=== PATIENT | female | born 1975 | race Caucasian/White ===

== ENCOUNTER → 2016-07-17 | Outpatient (REF) | payer OTHER ==
[~2016-07-17] MED LIST: IBUP600T26 PO; NORCOTAB PO; No Medications
[2016-07-17 18:53] LABS: MEAN CORPUSCULAR HEMOGLOBIN 29.5 pg (27.0-33.0); MEAN CORPUSCULAR HGB CONC 32.5 g/dl (32.0-36.5); MEAN CORPUSCULAR VOLUME 90.9 fl (80.0-96.0); RED CELL DISTRIBUTION WIDTH 13.2 % (11.5-14.5); WHITE BLOOD COUNT 7.5 K/mm3 (4.0-10.0)
[2016-07-17 18:57] LABS: ALBUMIN 4.1 GM/DL (3.2-5.2); ALBUMIN/GLOBULIN RATIO 1.24 (1.00-1.93); ALKALINE PHOSPHATASE 94 U/L (45-117); ALT/SGPT 26 U/L (12-78); ANION GAP 8 MEQ/L (8-16); AST/SGOT 15 U/L (15-37); BILIRUBIN,TOTAL 0.7 MG/DL (0.2-1.0); BLOOD UREA NITROGEN 10 MG/DL (7-18); CARBON DIOXIDE LEVEL 28 MEQ/L (21-32); CHLORIDE LEVEL 106 MEQ/L (98-107); CREATININE FOR GFR 0.76 MG/DL (0.55-1.02); GLOMERULAR FILTRATION RATE > 60.0 (>58); GLUCOSE, FASTING 86 MG/DL (70-105); POTASSIUM SERUM 4.9 MEQ/L (3.5-5.1); SODIUM LEVEL 142 MEQ/L (136-145); TOTAL PROTEIN 7.4 GM/DL (6.4-8.2)
== END ==
LOC: M SFHCADAM 09:46
PROVIDERS: ATTEND Family Medicine
DX: E04.9 Nontoxic goiter, unspecified (principal); K21.9 Gastro-esophageal reflux disease without esophagitis

== ENCOUNTER → 2016-12-03 | Outpatient (REF) | payer OTHER | LOC: M LAB REF 12:06 | PROVIDERS: ATTEND Physician Assistant | DX: J02.9 Acute pharyngitis, unspecified (principal) ==

== ENCOUNTER → 2017-11-11 | Outpatient (CLI) | payer OTHER ==
[2017-11-11 20:28] LABS: ALBUMIN 3.5 GM/DL (3.2-5.2); ALKALINE PHOSPHATASE 107 U/L (45-117); ALT/SGPT 28 U/L (12-78); ANION GAP 9 MEQ/L (8-16); AST/SGOT 15 U/L (7-37); BILIRUBIN,TOTAL 0.5 MG/DL (0.2-1.0); BLOOD UREA NITROGEN 6 MG/DL (7-18); CALCIUM LEVEL 8.7 MG/DL (8.5-10.1); CARBON DIOXIDE LEVEL 26 MEQ/L (21-32); CHLORIDE LEVEL 106 MEQ/L (98-107); CREATININE FOR GFR 0.82 MG/DL (0.55-1.30); GLOMERULAR FILTRATION RATE > 60.0 (>58); GLUCOSE, FASTING 83 MG/DL (70-100); POTASSIUM SERUM 4.5 MEQ/L (3.5-5.1); SODIUM LEVEL 141 MEQ/L (136-145)
[2017-11-11 20:36] LABS: BASO # 0.1 10^3/uL (0.0-0.2); BASO % 0.6 % (0.0-1.0); EOS # 0.3 10^3/uL (0.0-0.50); EOS % 3.1 % (0.0-3.0); HEMATOCRIT 38.6 % (36.0-47.0); HEMOGLOBIN 12.2 g/dl (12.0-15.5); IMMATURE GRANULOCYTE % 0.4 % (0-3.0); LYMPH # 1.7 10^3/uL (1.5-4.5); LYMPH % 16.5 % (24.0-44.0); MEAN CORPUSCULAR HEMOGLOBIN 27.2 pg (27.0-33.0); MEAN CORPUSCULAR HGB CONC 31.6 g/dl (32.0-36.5); NEUTROPHILS % 69.4 % (36.0-66.0); PLATELET COUNT, AUTOMATED 304 10^3/uL (150-450); RED BLOOD COUNT 4.49 10^6/uL (4.00-5.40); WHITE BLOOD COUNT 10.1 10^3/uL (4.0-10.0)
== END ==
LOC: M ADAMS 17:37
DX: R10.30 Lower abdominal pain, unspecified (principal)

== ENCOUNTER → 2017-11-16 | Outpatient (REF) | payer OTHER | LOC: M SFHCPLAZ 11-18 12:08 | DX: R19.7 Diarrhea, unspecified (principal) ==

== ENCOUNTER → 2019-06-22 | Outpatient (CLI) | payer OTHER ==
[~2019-06-22] MED LIST changes: +HYDR-3715 PO; +IBUP-1022 PO; -IBUP600T26 PO; -NORCOTAB PO
--- NOTE | 2019-06-22 07:30 | REP ---
Clinical: Goiter. Technique: Real time valerio scale and color evaluation using linear high frequency transducer. Comparison: None. Findings: The thyroid gland is generally heterogeneous. Isthmus measures 4 mm in width. Right lobe measures 5.0 x 1.9 x 1.4 cm and includes 5.8 mm upper pole hypoechoic structure with subtle increased through transmission suggesting a complex possibly colloid cyst and 18 x 14 x 17 mm heterogeneous lower pole nodular area. Left lobe measures 4.4 x 2.1 x 2.0 cm and includes 23 x 15 x 21 mm heterogeneous mid/lower pole nodular area. Impression: Bilateral nodular areas to the thyroid gland as described above. Electronically Signed by Vidal Turner MD 06/22/2019 07:21 A
== END ==
LOC: M RAD 06:02
PROVIDERS: ATTEND Physician Assistant Medical
DX: E04.9 Nontoxic goiter, unspecified (principal)

== ENCOUNTER → 2019-08-13 | Outpatient (REF) | payer OTHER | LOC: M LABDRWAD 15:21 → M LABDRAW1 15:21 | PROVIDERS: ATTEND Internal Medicine Gastroenterology | DX: K58.0 Irritable bowel syndrome with diarrhea (principal) ==

== ENCOUNTER → 2019-09-16 | Outpatient (REF) | payer OTHER | LOC: M LAB REF 17:24 | PROVIDERS: ATTEND Dermatology | DX: D22.5 Melanocytic nevi of trunk (principal); D22.62 Melanocytic nevi of left upper limb, including shoulder; D22.71 Melanocytic nevi of right lower limb, including hip ==

== ENCOUNTER → 2020-02-26 | Outpatient (CLI) | payer OTHER ==
[~2020-02-26] MED LIST changes: +DICY20TA11; +DULO1CAP6; +ESTR625TA; +OMEP1CAP73
--- NOTE | 2020-03-10 08:59 | REP ---
LEFT KNEE SERIES: 5-VIEWS HISTORY: Pain in the left knee. FINDINGS: Five views of the left knee show normal bones, joints, and soft tissues. No evidence of arthropathy is seen. No evidence of joint effusion. IMPRESSION: Negative left knee radiographs. MTDD
== END ==
LOC: M ADAMS 16:22
PROVIDERS: ATTEND Physician Assistant Medical
DX: M25.562 Pain in left knee (principal)

== ENCOUNTER → 2020-04-07 | Outpatient (CLI) | payer OTHER | LOC: M LABSMTC 10:43 | PROVIDERS: ATTEND Anesthesiology | DX: Z01.812 Encounter for preprocedural laboratory examination (principal); Z20.828 Contact with and (suspected) exposure to other viral communicable diseases ==

== ENCOUNTER 2020-04-12 11:23 | Day surgery (SDC) | payer OTHER ==
[~2020-04-12] VITALS: Ht 165.1 cm; Wt 109.5 kg
[~2020-04-12 11:23] MED LIST changes: +LIDOCAINE 2% 100MG/5ML SDV (FOR ANES.) As Ordered ONE; +NS 1,000 ML IV ONE; +propofoL 200 MG/20 ML VIAL As Ordered ONE
--- NOTE | 2020-04-12 13:28 | ROOR ---
Patient Name: Kyleigh Burroughs Procedure Date: 04/12/2020 1:11 PM Date of : 1975 Age: 45 Room: [facility] Gender: Female Note Status: Finalized Procedure: Upper GI endoscopy Indications: Heartburn Providers: Lamont ADAMS MD Referring MD: HILARIO Mcginnis Requesting Provider: Medicines: Monitored Anesthesia Care Complications: No immediate complications. Procedure: Pre-Anesthesia Assessment: - The heart rate, respiratory rate, oxygen saturations, blood pressure, adequacy of pulmonary ventilation, and response to care were monitored throughout the procedure. The Endoscope was introduced through the mouth, and advanced to the second part of duodenum. The upper GI endoscopy was accomplished without difficulty. The patient tolerated the procedure well. Findings: The examined esophagus was normal. Scattered minimal inflammation characterized by erythema was found in the gastric antrum. Biopsies were taken with a cold forceps for histology. The exam of the stomach was otherwise normal. The examined duodenum was normal. Impression: - Normal esophagus. - Mild gastritis (antrum). Biopsied. - Normal examined duodenum. Recommendation: - Continue present medications. - Observe patient's clinical course. - Telephone endoscopist for pathology results in 2 weeks. Lamont Adams MD Lamont ADAMS MD 04/12/2020 1:27:05 PM Electronically signed by Lamont ADAMS MD Number of Addenda: 0 Note Initiated On: 04/12/2020 1:11 PM Estimated Blood Loss: Estimated blood loss: none.
--- NOTE | 2020-04-12 13:43 | ROOR ---
Patient Name: Kyleigh Burroughs Procedure Date: 04/12/2020 1:12 PM Date of : 1975 Age: 45 Room: [facility] Gender: Female Note Status: Finalized Procedure: Colonoscopy Indications: Clinically significant diarrhea of unexplained origin, Suspected irritable bowel syndrome Providers: Lamont ADAMS MD Referring MD: HILARIO Mcginnis Requesting Provider: Medicines: Monitored Anesthesia Care Complications: No immediate complications. Procedure: Pre-Anesthesia Assessment: - The heart rate, respiratory rate, oxygen saturations, blood pressure, adequacy of pulmonary ventilation, and response to care were monitored throughout the procedure. The Colonoscope was introduced through the anus and advanced to 10 cm into the ileum. The colonoscopy was performed without difficulty. The patient tolerated the procedure well. The quality of the bowel preparation was good. Findings: The perianal and digital rectal examinations were normal. The ileocecal valve was somewhat deformed, but widely patent. The colon (entire examined portion) appeared normal. The terminal ileum appeared normal. Biopsies for histology were taken with a cold forceps for evaluation of microscopic colitis. Impression: - Small internal hemorrhoids. - The entire examined colon is normal. - The examined portion of the ileum was normal. - Biopsies were taken with a cold forceps for evaluation of microscopic colitis. Recommendation: - Telephone endoscopist for pathology results in 2 weeks. - Continue present medications. Lamont Adams MD Lamont ADAMS MD 04/12/2020 1:43:13 PM Electronically signed by Lamont ADAMS MD Number of Addenda: 0 Note Initiated On: 04/12/2020 1:12 PM Estimated Blood Loss: Estimated blood loss: none.
[2020-04-12 14:00] VITALS: BP 140/84
== END 2020-04-12 14:21 | disposition home or self-care (01) ==
LOC: M OPP 11:23
PROVIDERS: ATTEND Internal Medicine Gastroenterology
DX: K59.39 Other megacolon (principal); R19.7 Diarrhea, unspecified; K64.8 Other hemorrhoids; K29.70 Gastritis, unspecified, without bleeding; R12 Heartburn; Z79.891 Long term (current) use of opiate analgesic; Z79.899 Other long term (current) drug therapy

== ENCOUNTER → 2020-06-15 | Outpatient (CLI) | payer OTHER ==
[~2020-06-15] MED LIST changes: -LIDOCAINE 2% 100MG/5ML SDV (FOR ANES.) As Ordered ONE; -NS 1,000 ML IV ONE; -propofoL 200 MG/20 ML VIAL As Ordered ONE
--- NOTE | 2020-06-16 16:09 | SLEEPHOME ---
DATE: 06/15/2020 ORDERED BY: Lisa Robertson Diagnostic home sleep testing was performed due to concern for the obstructive sleep apnea syndrome. For testing, a nocturnal T3 respiratory monitoring device was used. Continuous record was made of pulse, oxygen saturation, air flow, chest and abdominal strain, and body position. There was 9 hours and 59 minutes of data reviewed. There was only 3 hours and 56 minutes marked as time in bed, but during the marked interval marked time in bed, there were 28 respiratory events identified of 10 seconds in duration or greater for a respiratory event index of 7.1. The events were primarily obstructive. Baseline pulse rate 89. Pulse rate ranged 74-110, baseline saturation 94%. Saturations fell to 87%, and testing was performed in both the supine and non-supine positions. IMPRESSION: Abnormal diagnostic home sleep test with repetitive respiratory events and oxygen desaturations to 87% with a respiratory event index of 7.1 is consistent with the obstructive sleep apnea syndrome. RECOMMENDATION: The patient should be encouraged to undergo formal sleep evaluation.
== END ==
LOC: M SLEEP HO 10:53
PROVIDERS: ATTEND Nurse Practitioner Family
DX: R40.0 Somnolence (principal)

== ENCOUNTER → 2020-06-29 | Outpatient (CLI) | payer OTHER ==
--- NOTE | 2020-06-29 11:24 | REP ---
INDICATION: VARICOSE VEINS COMPARISON: None. TECHNIQUE: Morrow scale and color Doppler evaluation of the bilateral lower extremities using linear high frequency transducer followed by reflux evaluation. FINDINGS: Ultrasound examination of the right and left lower extremity deep venous structures from the common femoral vein to the popliteal vein demonstrates normal compressibility flow and wave patterns in response to respiration and augmentation. There is no evidence for deep venous thrombosis. Reflux evaluation demonstrates very minimal reflux through the right and left proximal greater saphenous veins. Proximal right greater saphenous vein measures 9 mm diameter with reflux duration 4.2 seconds. Proximal left greater saphenous vein measures 7 mm diameter with reflux duration 3.2 seconds. Mild reflux is also identified within the bilateral common femoral veins. IMPRESSION: No evidence for deep venous thrombosis. Very minimal reflux disease as noted above. <Electronically signed by Vidal Turner > 06/29/20 [id number]
== END ==
LOC: M RAD 08:56
PROVIDERS: ATTEND Surgery Vascular Surgery
DX: I87.2 Venous insufficiency (chronic) (peripheral) (principal); I83.813 Varicose veins of bilateral lower extremities with pain

== ENCOUNTER → 2020-08-01 | Outpatient (REF) | payer OTHER | LOC: M LAB REF 12:27 | PROVIDERS: ATTEND Internal Medicine Gastroenterology | DX: K58.0 Irritable bowel syndrome with diarrhea (principal) ==

== ENCOUNTER → 2020-08-08 | Outpatient (REF) | payer OTHER | LOC: M LABDRWAD 16:06 | PROVIDERS: ATTEND Internal Medicine Gastroenterology | DX: K52.89 Other specified noninfective gastroenteritis and colitis (principal) ==

== ENCOUNTER → 2021-02-24 | Outpatient (REF) | payer OTHER ==
[~2021-02-24] MED LIST changes: -DICY20TA11; +DICY20TA20
[2021-02-24 14:19] LABS: ALBUMIN 3.5 GM/DL (3.2-5.2); ALT/SGPT 17 U/L (12-78); BILIRUBIN,TOTAL 0.4 MG/DL (0.2-1.0); BLOOD UREA NITROGEN 14 MG/DL (7-18); CARBON DIOXIDE LEVEL 27 MEQ/L (21-32); CHLORIDE LEVEL 108 MEQ/L (98-107); CHOLESTEROL LEVEL 212 MG/DL (<200); CHOLESTEROL RISK RATIO 3.419 (<5); CREATININE FOR GFR 0.69 MG/DL (0.55-1.30); FREE T4 0.78 NG/DL (0.76-1.46); GLOMERULAR FILTRATION RATE > 60.0 (>58); GLUCOSE, FASTING 81 MG/DL (70-100); HDL CHOLESTEROL 62 MG/DL (>40); LDL CHOLESTEROL 122 MG/DL (<100); NON-HDL-C 150 MG/DL; POTASSIUM SERUM 4.7 MEQ/L (3.5-5.1); SODIUM LEVEL 139 MEQ/L (136-145); TOTAL PROTEIN 7.2 GM/DL (6.4-8.2); TRIGLYCERIDES LEVEL 139 MG/DL (<150)
== END ==
LOC: M SFHCADAM 12:17
PROVIDERS: ATTEND Physician Assistant Medical
DX: G47.33 Obstructive sleep apnea (adult) (pediatric) (principal); K21.9 Gastro-esophageal reflux disease without esophagitis; E66.01 Morbid (severe) obesity due to excess calories; E04.1 Nontoxic single thyroid nodule

== ENCOUNTER → 2021-03-03 | Outpatient (CLI) | payer OTHER ==
[~2021-03-03] MED LIST changes: +DICY20TA11; -DICY20TA20
--- NOTE | 2021-03-03 17:08 | REP ---
INDICATION: NODULE, GOITER. COMPARISON: 06/22/2019. TECHNIQUE: Real-time sonographic evaluation of thyroid performed. FINDINGS: Right lobe of the thyroid is enlarged 7.4 x 1.7 x 1.4 cm. Left lobe is normal in size 4.7 x 1.9 x 1.7 cm. Echotexture is diffusely heterogeneous. A hypoechoic nodule in the right upper pole has not changed measuring 6 x 5 x 5 mm. An oval isoechoic nodule in the right lower pole measures 3.2 x 1.6 x 2.3 cm. This appears to have mildly increased in size. A heterogeneous hypoechoic nodule in the left lower pole measures 3.4 x 1.8 x 2.2 cm. It contains a small cystic area. This appears to have mildly increased in size. IMPRESSION: There is a solid nodule in the lower pole of each lobe of the thyroid. Both appear to have mildly increased in size. Recommend ultrasound-guided FNA of both nodules. <Electronically signed by George Morrow > 03/03/21 [id number]
== END ==
LOC: M RAD 16:03
PROVIDERS: ATTEND Physician Assistant Medical
DX: E04.1 Nontoxic single thyroid nodule (principal)

== ENCOUNTER → 2021-03-27 | Outpatient (CLI) | payer OTHER ==
--- NOTE | 2021-03-28 17:44 | ECHO ---
ECHOCARDIOGRAM DATE OF PROCEDURE: 03/27/2021 Age: 45 years Gender: Female Height: 64 inches Weight: 246 pounds Body Surface Area: 2.35 m2 Outpatient REFERRING PHYSICIAN: Gale Montez PA-C INDICATION: Abnormal EKG. MEASUREMENTS: 2D Measurements: RV 3.5 cm LV 5.2 cm Septum 1.1 cm Posterior wall 1.1 cm Aortic Root 3.2 cm LA 4.2 cm LVEF 65% Doppler Measurements: AV 1.25 m/s LVOT 0.86 m/s MV-E 66, A 60, E/A ratio 1.1 Early mitral deceleration time 180 ms E prime medial 6.3, A prime medial 12, E prime lateral 8.3 Average E/E prime ratio 9/PCWP - 13 mmHg PV 0.9 m/s Pulmonary artery acceleration time 102 ms PASP 36 mmHg IVC 1.8 cm COMMENTS: Normal sinus rhythm without intraventricular conduction disturbance. Somewhat technically challenging study in light of the patient's body habitus, but diagnostically useful information was still obtained. M-Mode and Two Dimensional Echocardiography was performed with pulse, continuous wave, color flow, and tissue Doppler studies. Normal left ventricular size, wall thickness, and wall motion. Slightly dilated left atrium with currently normal Doppler assessment of LV diastolic function and estimated mean left atrial pressure. Normal right heart chamber sizes and motion with single Doppler sign of mild pulmonary hypertension. Normal inferior vena cava (IVC) size and collapse against an elevated central venous pressure. Normal aortic dimensions. Normal-appearing and functioning valvular structures. No apparent intracardiac mass or pericardial effusion. MTDD
== END ==
LOC: M CARPUL 08:46
PROVIDERS: ATTEND Physician Assistant Medical
DX: R94.31 Abnormal electrocardiogram [ECG] [EKG] (principal)

== ENCOUNTER → 2021-04-11 | Outpatient (REF) | payer OTHER | LOC: M LAB REF 19:04 | PROVIDERS: ATTEND Internal Medicine Endocrinology, Diabetes & Metabolism | DX: E04.2 Nontoxic multinodular goiter (principal) ==

== ENCOUNTER → 2021-06-14 | Outpatient (CLI) | payer OTHER ==
--- NOTE | 2021-06-14 10:14 | REPMRS ---
Patient History The patient states she had a clinical breast exam on 10-08-21. Family history of breast cancer at age 70 in mother, colorectal cancer at age 75 in father. Benign core biopsy of the left breast, September 17, 2006. Took hormonal contraceptives for 10 years. Tomosynthesis is performed. Volpara breast density is b. [facility] lifetime risk of breast cancer 18.5%. Patient states no breast complaints today. Patient has signed MRS History Sheet. Digital Woman Screen Mammo: June 14, 2021 - Exam #: [id number] Bilateral CC and MLO view(s) were taken. 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 April 28, 2015, digital woman screen mammo performed at [facility]. FINDINGS: There are scattered fibroglandular densities. There is a fairly symmetric fibroglandular pattern in both breasts. There has been no interval development of masses, areas of architectural distortion or clusters of microcalcifications typical of malignancy. A smoothly marginated nodule medially in the right breast is stable. A smoothly marginated nodule of the inferior left breast is stable. No significant changes when compared with prior studies. Assessment: BI-RADS/ACR category 2 mammogram. Benign Findings. Recommendation Routine screening mammogram of both breasts in 1 year (for women over age 40). This mammogram was interpreted with the aid of an FDA-approved computer-aided dectection system. Electronically Signed By: George Morrow MD 06/14/21 [id number]
== END ==
LOC: M WHC 08:51
PROVIDERS: ATTEND Nurse Practitioner Women's Health
DX: Z12.31 Encounter for screening mammogram for malignant neoplasm of breast (principal)

== ENCOUNTER → 2021-08-25 | Outpatient (CLI) | payer OTHER ==
[~2021-08-25] MED LIST changes: -DICY20TA11; +DICY20TA20
== END ==
LOC: M ADAMS 15:54
PROVIDERS: ATTEND Physician Assistant Medical
DX: E66.01 Morbid (severe) obesity due to excess calories (principal); M25.551 Pain in right hip; M54.41 Lumbago with sciatica, right side

== ENCOUNTER → 2022-03-21 | Outpatient (REF) | payer OTHER ==
[2022-03-21 15:16] LABS: ALBUMIN 3.5 GM/DL (3.2-5.2); ALT/SGPT 13 U/L (12-78); BILIRUBIN,TOTAL 0.5 MG/DL (0.2-1.0); BLOOD UREA NITROGEN 9 MG/DL (7-18); CALCIUM LEVEL 8.9 MG/DL (8.5-10.1); CARBON DIOXIDE LEVEL 29 MEQ/L (21-32); CHLORIDE LEVEL 100 MEQ/L (98-107); CHOLESTEROL LEVEL 216 MG/DL (<200); CHOLESTEROL RISK RATIO 3.176 (<5); CREATININE FOR GFR 0.86 MG/DL (0.55-1.30); GLOMERULAR FILTRATION RATE > 60.0 (>58); GLUCOSE, FASTING 99 MG/DL (70-100); HDL CHOLESTEROL 68 MG/DL (>40); LDL CHOLESTEROL 122 MG/DL (<100); NON-HDL-C 148 MG/DL; POTASSIUM SERUM 3.2 MEQ/L (3.5-5.1); SODIUM LEVEL 137 MEQ/L (136-145); TOTAL PROTEIN 7.3 GM/DL (6.4-8.2); TRIGLYCERIDES LEVEL 130 MG/DL (<150)
[2022-03-21 15:36] LABS: HEMOGLOBIN A1c 5.6 %
[2022-03-21 16:00] LABS: VITAMIN B12 LEVEL 247 PG/ML
== END ==
LOC: M SFHCADAM 09:56
PROVIDERS: ATTEND Physician Assistant Medical
DX: K21.9 Gastro-esophageal reflux disease without esophagitis (principal); F32.9 Major depressive disorder, single episode, unspecified; E66.01 Morbid (severe) obesity due to excess calories; I10 Essential (primary) hypertension

== ENCOUNTER → 2022-03-22 | Outpatient (CLI) | payer OTHER, SELFPAY | LOC: M RAD 10:51 | PROVIDERS: ATTEND Internal Medicine Endocrinology, Diabetes & Metabolism | DX: E04.2 Nontoxic multinodular goiter (principal) ==

== ENCOUNTER → 2022-08-31 | Outpatient (CLI) | payer OTHER, SELFPAY | LOC: M WHC 12:56 | PROVIDERS: ATTEND Obstetrics & Gynecology | DX: Z12.31 Encounter for screening mammogram for malignant neoplasm of breast (principal); N64.89 Other specified disorders of breast ==

== ENCOUNTER → 2022-09-19 | Outpatient (CLI) | payer OTHER | LOC: M WHC 14:17 | PROVIDERS: ATTEND Physician Assistant Medical | DX: N63.10 Unspecified lump in the right breast, unspecified quadrant (principal) | CPT/HCPCS: 76642; 77065; G0279 ==

== ENCOUNTER → 2022-11-15 | Outpatient (CLI) | payer OTHER, SELFPAY | LOC: M SLEEP 20:00 | PROVIDERS: ATTEND Nurse Practitioner Family | DX: G47.33 Obstructive sleep apnea (adult) (pediatric) (principal) ==

== ENCOUNTER → 2023-02-20 | Outpatient (REF) | payer OTHER ==
[2023-02-20 15:12] LABS: BASO # 0.1 10^3/uL (0.0-0.2); EOS # 0.2 10^3/uL (0.0-0.5); EOS % 2.5 % (0.0-3.0); HEMATOCRIT 41.2 % (36.0-47.0); HEMOGLOBIN 12.6 g/dl (12.0-15.5); LYMPH % 25.7 % (24.0-44.0); MEAN CORPUSCULAR HEMOGLOBIN 26.5 pg (27.0-33.0); MEAN CORPUSCULAR HGB CONC 30.6 g/dl (32.0-36.5); MEAN CORPUSCULAR VOLUME 86.6 fl (80.0-96.0); MONO # 0.5 10^3/uL (0.0-0.8); MONO % 6.1 % (2.0-8.0); NEUTROPHILS # 4.9 10^3/uL (1.5-8.5); NEUTROPHILS % 64.2 % (36.0-66.0); PLATELET COUNT, AUTOMATED 326 10^3/uL (150-450); RED BLOOD COUNT 4.76 10^6/uL (4.00-5.40); WHITE BLOOD COUNT 7.7 10^3/uL (4.0-10.0)
[2023-02-20 15:47] LABS: THYROID STIMULATING HORMONE 1.622 uIU/ML (0.55-4.78); TOTAL 25(OH) VITAMIN D 31.5 NG/ML (20.0-100.0)
[2023-02-20 15:49] LABS: ALBUMIN 3.6 G/DL (3.2-5.2); ALKALINE PHOSPHATASE 82 U/L (46-116); ALT/SGPT 20 U/L (7.0-40); AST/SGOT 10 U/L (<34); BILIRUBIN,TOTAL 0.5 MG/DL (0.3-1.2); BLOOD UREA NITROGEN 12 MG/DL (9-23); CARBON DIOXIDE LEVEL 28 MMOL/L (20-31); CHLORIDE LEVEL 105 MMOL/L (98-107); CHOLESTEROL LEVEL 201 MG/DL (<200); CHOLESTEROL RISK RATIO 2.97 (<5); CREATININE FOR GFR 0.85 MG/DL (0.55-1.30); GLOMERULAR FILTRATION RATE > 60.0 (>58); GLUCOSE, FASTING 90 MG/DL (60-100); HDL CHOLESTEROL 67.5 MG/DL (>40); LDL CHOLESTEROL 111.1 MG/DL (<100); NON-HDL-C 133.5 MG/DL; POTASSIUM SERUM 4.6 MMOL/L (3.5-5.1); SODIUM LEVEL 141 MMOL/L (136-145); TOTAL PROTEIN 6.8 G/DL (5.7-8.2); TRIGLYCERIDES LEVEL 112 MG/DL (<150)
== END ==
LOC: M SFHCADAM 11:54
PROVIDERS: ATTEND Physician Assistant Medical
DX: G47.33 Obstructive sleep apnea (adult) (pediatric) (principal); K21.9 Gastro-esophageal reflux disease without esophagitis; E66.01 Morbid (severe) obesity due to excess calories; E04.1 Nontoxic single thyroid nodule; I10 Essential (primary) hypertension

== ENCOUNTER → 2023-03-25 | Outpatient (CLI) | payer OTHER | LOC: M WHC 12:44 | PROVIDERS: ATTEND Physician Assistant Medical | DX: R92.8 Other abnormal and inconclusive findings on diagnostic imaging of breast (principal); N63.11 Unspecified lump in the right breast, upper outer quadrant | CPT/HCPCS: 77065; G0279 ==

== ENCOUNTER → 2023-07-10 | Outpatient (CLI) | payer OTHER | LOC: M ADAMS 12:10 | PROVIDERS: ATTEND Physician Assistant Medical | DX: M25.511 Pain in right shoulder (principal) ==

== ENCOUNTER → 2023-09-27 | Outpatient (CLI) | payer OTHER | LOC: M WHC 07:58 | PROVIDERS: ATTEND Physician Assistant Medical | DX: Z12.31 Encounter for screening mammogram for malignant neoplasm of breast (principal) ==

== ENCOUNTER → 2024-04-23 | Outpatient (REF) | payer OTHER ==
[2024-04-23 13:10] LABS: ALBUMIN 3.4 G/DL (3.2-5.2); ALKALINE PHOSPHATASE 87 U/L (35-104); ALT/SGPT 12 U/L (7.0-40); AST/SGOT < 8 U/L (<34); BILIRUBIN,TOTAL 0.6 MG/DL (0.3-1.2); BLOOD UREA NITROGEN 13 MG/DL (9-23); CALCIUM LEVEL 9.3 MG/DL (8.5-10.1); CARBON DIOXIDE LEVEL 28 MMOL/L (20-31); CHLORIDE LEVEL 107 MMOL/L (98-107); CHOLESTEROL LEVEL 188 MG/DL (<200); CHOLESTEROL RISK RATIO 3.79 (<5); CREATININE FOR GFR 0.81 MG/DL (0.55-1.30); GLOMERULAR FILTRATION RATE > 60.0 (>51); GLUCOSE, FASTING 106 MG/DL (60-100); HDL CHOLESTEROL 49.5 MG/DL (>40); LDL CHOLESTEROL 119.3 MG/DL (<100); NON-HDL-C 138.5 MG/DL; POTASSIUM SERUM 4.2 MMOL/L (3.5-5.1); SODIUM LEVEL 141 MMOL/L (136-145); TOTAL PROTEIN 6.7 G/DL (5.7-8.2); TRIGLYCERIDES LEVEL 96 MG/DL (<150)
[2024-04-23 13:11] LABS: BASO # 0.1 10^3/uL (0.0-0.2); BASO % 0.8 % (0.0-1.0); EOS # 0.1 10^3/uL (0.0-0.5); EOS % 1.9 % (0.0-3.0); HEMATOCRIT 41.8 % (36.0-47.0); HEMOGLOBIN 13.1 g/dl (12.0-15.5); LYMPH # 1.4 10^3/uL (1.5-5.0); LYMPH % 19.3 % (24.0-44.0); MEAN CORPUSCULAR HEMOGLOBIN 27.9 pg (27.0-33.0); MEAN CORPUSCULAR HGB CONC 31.3 g/dl (32.0-36.5); MEAN CORPUSCULAR VOLUME 88.9 fl (80.0-96.0); MONO # 0.5 10^3/uL (0.0-0.8); NEUTROPHILS # 5.3 10^3/uL (1.5-8.5); NEUTROPHILS % 70.5 % (36.0-66.0); PLATELET COUNT, AUTOMATED 292 10^3/uL (150-450); WHITE BLOOD COUNT 7.5 10^3/uL (4.0-10.0)
[2024-04-23 13:12] LABS: THYROID STIMULATING HORMONE 0.052 uIU/ML (0.55-4.78); TOTAL 25(OH) VITAMIN D 65.4 NG/ML (20.0-100.0)
== END ==
LOC: M SFHCADAM 07:52
PROVIDERS: ATTEND Physician Assistant Medical
DX: K21.9 Gastro-esophageal reflux disease without esophagitis (principal); F32.9 Major depressive disorder, single episode, unspecified; I10 Essential (primary) hypertension; E55.9 Vitamin D deficiency, unspecified

== ENCOUNTER → 2024-07-24 | Outpatient (REF) | payer OTHER | LOC: M LAB REF 13:23 | PROVIDERS: ATTEND Plastic Surgery Surgery of the Hand | DX: Z98.890 Other specified postprocedural states (principal) ==